=== PATIENT | male | born 1960 | race Caucasian/White ===

== ENCOUNTER 2017-11-14 10:52 | Day surgery (SDC) | payer BC ==
[~2017-11-14 10:52] MED LIST: CEFAZOLIN 1 GM INJ; DEXAMETHASONE 4 MG/ML 1 ML INJ; GLYCOPYRROLATE 0.4 MG INJ; NEOSTIGMINE 3 MG/3 ML SYRINGE; ONDANSETRON 4 MG INJ
[2017-11-14] MEDS ORDERED: SOD CHLORIDE 0.9% 1,000 ML IV (12:30)
[2017-11-14] MEDS ORDERED: CEFAZOLIN 1 GM/50 ML (PMX) 50 ML IVPB (12:30)
[2017-11-14] MEDS ORDERED: ROCURONIUM 50 MG INJ (13:31)
[2017-11-14] MEDS ORDERED: LIDOCAINE 2% (SDV) 5 ML INJ (13:31)
[2017-11-14] MEDS ORDERED: PROPOFOL 20 ML (13:31)
[2017-11-14] MEDS: BUPIVACAINE 0.25%/EPI (MDV) 50 ML VIAL INJ (13:51)
[2017-11-14] MEDS: POLYMYXIN/BACITRACIN 1L IRRIG IRR (13:52)
[2017-11-14] MEDS ORDERED: KETOROLAC 30 MG INJ IV (15:30)
[2017-11-14] MEDS ORDERED: hydrALAzine 20 MG INJ IV (15:30)
[2017-11-14] MEDS ORDERED: MEPERIDINE 25 MG INJ IV (15:30)
[2017-11-14] MEDS ORDERED: OXYCODONE/ACETAMINOPHEN (5/325) TAB PO ×2 (15:30)
[2017-11-14] MEDS ORDERED: EPHEDrine SULFATE 50 MG/5 ML SYG IV (15:30)
[2017-11-14] MEDS ORDERED: FENTAnyl 50 MCG/ML VIAL IV ×3 (15:30)
[2017-11-14] MEDS ORDERED: ALBUTEROL 0.083% (NEB) 2.5 MG/3 ML AMP HHN (15:30)
[2017-11-14] MEDS ORDERED: LABETALOL HCL 20MG INJ IV (15:30)
[2017-11-14] MEDS ORDERED: HYDROmorphONE 1 MG/5 ML IV SYRINGE IV ×2 (15:30)
[2017-11-14] MEDS ORDERED: HYDROCODONE/APAP (5/325) TAB PO ×2 (15:30)
[2017-11-14] MEDS ORDERED: DIPHENHYDRAMINE 50 MG INJ IV (15:30)
[2017-11-14] MEDS ORDERED: IBUPROFEN 600 MG TAB PO (15:30)
[2017-11-14] MEDS ORDERED: morphine 2 MG INJ IV (15:30)
[2017-11-14] MEDS ORDERED: ONDANSETRON 4 MG INJ IV (15:30)
[2017-11-14] MEDS: KETOROLAC 30 MG INJ IV (16:23)
[2017-11-14] MEDS: HYDROmorphONE 1 MG/5 ML IV SYRINGE IV (16:36)
[2017-11-14] MEDS: ONDANSETRON 4 MG INJ IV (17:26)
[2017-11-14] MEDS: METOCLOPRAMIDE 10 MG INJ IV (17:54)
== END 2017-11-14 18:35 | disposition home or self-care (01) ==
LOC: SDS 10:52
DX: K40.90 Unilateral inguinal hernia, without obstruction or gangrene, not specified as recurrent (principal)
CPT/HCPCS: 49505